=== PATIENT | female | born 1985 ===

== ENCOUNTER 2021-04-20 08:43 | Outpatient (REF) | payer MEDICAID, SELFPAY ==
[2021-04-20 14:17] LABS: Abs Immature Grans 0.01 10^3/uL (0.0-0.06); Absolute Basophil Count 0.04 10^3/uL (0.0-0.2); Absolute Eosinophil Count 0.05 10^3/uL (0.0-0.7); Absolute Neutrophil Count 2.98 10^3/uL (1.2-6.7); Basophils % 0.7; Eosinophils % 0.9; Immature Grans % 0.2; Lymphocytes % 39.8; MCHC 31.6 % (32.0-36.0); MCV 85.4 fL (80-95); MPV 11.7 fL (8.0-11.0); Monocytes % 6.9; Neutrophils % 51.5; Nucleated RBC 0 %; Platelet Count 271 10^3/uL (130-400); RBC 4.45 10^6/uL (3.93-5.22); RDW 12.9 % (11.7-14.6); RDW-SD 40.1 fL; WBC 5.78 10^3/uL (4.4-10.8)
[2021-04-20 14:39] LABS: ALT 28 U/L (14-59); AST 20 U/L (15-37); Albumin 3.9 g/dL (3.4-5.0); Alkaline Phosphatase 78 U/L (46-116); Anion Gap 9.6 mmol/L (3-11); BUN 14 mg/dL (7-18); Bilirubin, Total 0.3 mg/dL (0.2-1.0); C-Reactive Protein 0.24 mg/dL (0.0-0.3); CO2 25.4 mmol/L (21.0-32.0); CREATININE 0.7 mg/dL (0.55-1.02); Calcium 8.9 mg/dL (8.5-10.1); Chloride 102 mmol/L (98-107); Glucose 78 mg/dL (74-106); Magnesium 1.7 mg/dL (1.8-2.4); Potassium 4.4 mmol/L (3.5-5.1); Sodium 137 mmol/L (136-145); Total Protein 6.9 g/dL (6.4-8.2)
[2021-04-20 14:53] LABS: Vitamin D 25 Total 36.1 ng/mL (30-100)
[2021-04-20 15:17] LABS: Vitamin B12 1197 pg/mL (193-986)
[2021-04-22 15:15] LABS: IgA 217 mg/dL (85-499); Interpretation (See Note); Tissue Transglutaminase IgA <1.2 U/mL (<4.0)
== END 2021-04-20 08:44 | disposition home or self-care (01) ==
LOC: NCHCN 08:43
PROVIDERS: Visit Provider Family Medicine
DX: R20.2 Paresthesia of skin (principal); K58.9 Irritable bowel syndrome, unspecified; M35.00 Sjogren syndrome, unspecified; K59.09 Other constipation; E04.1 Nontoxic single thyroid nodule
CPT/HCPCS: 80053; 82306; 82784; 83516; 82607; 83735; 84443; 85025; 86140

== ENCOUNTER 2023-11-22 15:56 | Outpatient (REF) | payer MEDICAID, SELFPAY ==
[2023-11-22 21:37] LABS: Abs Immature Grans 0.02 10^3/uL (0.0-0.06); Absolute Basophil Count 0.04 10^3/uL (0.0-0.2); Absolute Eosinophil Count 0.05 10^3/uL (0.0-0.7); Absolute Lymphocyte Count 1.88 10^3/uL (1.2-3.4); Absolute Monocyte Count 0.38 10^3/uL (0.1-0.8); Absolute Neutrophil Count 5.91 10^3/uL (1.2-6.7); Basophils % 0.5; Eosinophils % 0.6; HCT 39.5 % (36.0-46.0); HGB 12.3 g/dL (11.2-15.7); Immature Grans % 0.2; Lymphocytes % 22.7; MCH 25.9 pg (27.0-33.0); MCHC 31.1 % (32.0-36.0); MCV 83 fL (80-95); MPV 11.4 fL (8.0-11.0); Monocytes % 4.6; Neutrophils % 71.4; Platelet Count 238 10^3/uL (130-400); RBC 4.74 10^6/uL (3.93-5.22); RDW 13.2 % (11.7-14.6); RDW-SD 40.5 fL; WBC 8.28 10^3/uL (4.4-10.8)
[2023-11-22 21:53] LABS: Iron 94 ug/dL (50-170); Total Iron Binding Capacity 318 ug/dL (250-450); Transferrin Sat 30 % (15-50)
[2023-11-22 22:20] LABS: ALT 17 U/L (14-59); AST 19 U/L (15-37); Albumin 3.8 g/dL (3.4-5.0); Alkaline Phosphatase 64 U/L (46-116); Anion Gap 10.7 mmol/L (3-11); BUN 14 mg/dL (7-18); Bilirubin, Total 0.2 mg/dL (0.2-1.0); CO2 24.3 mmol/L (21.0-32.0); CREATININE 0.7 mg/dL (0.55-1.02); Calcium 9.1 mg/dL (8.5-10.1); Chloride 106 mmol/L (98-107); Estimated GFR 112.05 (mL/min/1.73m2); Ferritin 67 ng/mL (8-252); Glucose 94 mg/dL (74-106); Potassium 4.2 mmol/L (3.5-5.1); Sodium 141 mmol/L (136-145); TSH (W/Ref FT4) 0.88 uIU/mL (0.36-3.74); Total Protein 7.7 g/dL (6.4-8.2); Vitamin B12 588 pg/mL (193-986)
[2023-11-22 23:02] LABS: Vitamin D 25 Total 28.3 ng/mL (30-100)
== END 2023-11-22 15:57 | disposition home or self-care (01) ==
LOC: NCHCN 15:56
PROVIDERS: PCP Physician Assistant; Visit Provider Physician Assistant
DX: L65.9 Nonscarring hair loss, unspecified (principal); R53.83 Other fatigue; R20.2 Paresthesia of skin; E55.9 Vitamin D deficiency, unspecified
CPT/HCPCS: 80053; 82306; 82607; 82728; 82746; 83540; 83550; 84443; 85025